=== PATIENT | male | born 1980 | race Asian ===

== ENCOUNTER 2019-01-11 04:37 | Emergency (ER) | payer OTHER ==
[~2019-01-11] VITALS: Ht 182.9 cm; Wt 88.0 kg
[2019-01-11 04:46] VITALS: Ht 182.9 cm; Wt 88.0 kg
[2019-01-11 05:37] LABS: BASOPHIL % 0.3 % (0-2); PLATELET COUNT 228 x10^3mcL (130-400)
[2019-01-11 05:40] LABS: CALCIUM 9.3 mg/dL (8.5-10.1); CARBON DIOXIDE 25.6 mmol/L (21-32); CHLORIDE SERUM 105 mmol/L (98-107); CREATININE SERUM 1.2 mg/dL (0.7-1.3); GFR1 > 60 mL/min; GLUCOSE SERUM 126 mg/dL (74-106); POTASSIUM SERUM 4.1 mmol/L (3.5-5.1); SODIUM SERUM 140 mmol/L (136-145)
[2019-01-11 05:41] LABS: RED CELL DISTRIBUTION WIDTH 16.8 % (11.5-14.5)
[2019-01-11 05:45] LABS: ALBUMIN 4.2 g/dL (3.4-5.0); ALKALINE PHOSPHATASE 63 U/L (46-116); ALT/SGPT 39 U/L (16-63); AST/SGOT 15 U/L (15-37); BILIRUBIN TOTAL 0.4 mg/dL (0.20-1.00); LIPASE 162 IU/L (73-393); TOTAL PROTEIN, SERUM 7.6 g/dL (6.4-8.2)
[2019-01-11 07:02] VITALS: BP 126/70
== END 2019-01-11 07:02 | disposition home or self-care (01) ==
LOC: ED 04:37
PROVIDERS: Emergency Medicine
DX: N20.1 Calculus of ureter (principal)
CPT/HCPCS: J1885; J2270; J2405; J7030